=== PATIENT | female | born 1985 | race African-American/Black ===

== ENCOUNTER 2018-03-29 06:43 | Day surgery (SDC) | payer MEDICAID ==
[2018-03-27 12:15] LABS: HEMATOCRIT 39.5 % (36.0-48.0); MCH 34.7 pg (26.0-34.0); MCHC 35.4 g/dL (31.0-37.0); MCV 97.8 fL (80.0-100.0); MEAN PLATELET VOLUME 9.9 fL (7.4-10.4); PLATELET COUNT 184 10x3/uL (130-400); RBC 4.04 10x6/uL (4.00-5.40); WBC 5.3 10x3/uL (4.8-10.8)
[2018-03-27 12:56] LABS: LYMPHOCYTES 38 % (15-50); MONOCYTES 7 % (2-11); NEUTROPHILS 38 % (40-80); PLATELET ESTIMATE NORMAL
[~2018-03-29] VITALS: Ht 167.6 cm; Wt 75.3 kg
[2018-03-29 06:10] VITALS: BP 128/83; Ht 167.6 cm; Wt 75.3 kg
[2018-03-29 06:30] LABS: HCG URINE NEGATIVE (NEGATIVE)
--- NOTE | 2018-03-29 08:15 | NUR ---
RECE'D FROM SURGERY. BYPASSED RR. DROWSY BUT RESPONDS TO VERBAL STIMULI. COLA AND PUDDING BROUGHT TO PT. PT REFUSED OATMEAL. IS WANTING A HAMBURGER. EXPLAINED TO PT HAS TO HAVE FL LIQUID WHEN FIRST BACK FROM SURGERY. FAMILY AT BEDSIDE.
--- NOTE | 2018-03-29 09:00 | NUR ---
VS RECHECKED. PT UNCHANGED. MESH PANTIES AND KRISTI PAD GIVEN TO PT. FAMILY AT BEDSIDE.
--- NOTE | 2018-03-29 09:12 | NUR ---
DR RICK HERE TO TALK WITH PATIENT.
--- NOTE | 2018-03-29 09:30 | NUR ---
IV DC'D WITH CATHETER INTACT. WRITTEN AND VERBAL DC INST. GIVEN TO PT ALONG WITH RX. VERBALIZED UNDERSTANDING. GETTING DRESSED FOR DC.
--- NOTE | 2018-03-29 09:40 | NUR ---
DC'D HOME WITH FAMILY VIA PRIVATE VEHICLE. AMBULATORY TO VEHICLE. DID NOT WANT WC RELATING SHE CAN WALK. RELATED WE WOULD MAKE HER FEEL LIKE AN INVALID. STABLE AT TIME OF DC.
== END 2018-03-29 09:40 | disposition home or self-care (01) ==
LOC: D.OPS 06:43 → D.PAN 07:30 → D.OPS 09:40
PROVIDERS: Obstetrics & Gynecology
DX: N87.0 Mild cervical dysplasia (principal); N72 Inflammatory disease of cervix uteri; R87.810 Cervical high risk human papillomavirus (HPV) DNA test positive; Z01.812 Encounter for preprocedural laboratory examination

== ENCOUNTER 2018-10-23 04:12 | Emergency (ER) | payer MEDICAID ==
[~2018-10-23] VITALS: Ht 167.6 cm; Wt 76.8 kg
[2018-10-23 04:18] VITALS: Ht 167.6 cm; Wt 76.8 kg
[2018-10-23 05:10] LABS: HCG URINE NEGATIVE (NEGATIVE)
[2018-10-23 05:13] LABS: APPEARANCE CLOUDY (CLEAR); BILIRUBIN NEGATIVE (NEGATIVE); COLOR YELLOW (YELLOW); GLUCOSE NEGATIVE (NEGATIVE); KETONE NEGATIVE (NEGATIVE); NITRITE NEGATIVE (NEGATIVE); PROTEIN TRACE mg/dL (NEGATIVE); UROBILINOGEN NORMAL (NORMAL)
[2018-10-23 05:15] LABS: BACTERIA MANY /hpf (NONE SEEN); EPITHELIAL CELLS 0-5 /hpf (0-5); RED CELLS - URINE 0-5 /hpf (0-5); WHITE CELLS - URINE 0-5 /hpf (0-5)
[2018-10-23] MEDS ORDERED: HYDROCODON-ACE1 EAC7 PO (06:40)
[2018-10-23 07:07] VITALS: BP 112/74
== END 2018-10-23 07:05 | disposition home or self-care (01) ==
LOC: D.ER 04:12
PROVIDERS: Family Medicine
DX: S00.83XA Contusion of other part of head, initial encounter (principal); Y04.2XXA Assault by strike against or bumped into by another person, initial encounter; Y93.89 Activity, other specified; Y92.89 Other specified places as the place of occurrence of the external cause; S50.311A Abrasion of right elbow, initial encounter; S09.90XA Unspecified injury of head, initial encounter

== ENCOUNTER 2018-10-28 14:13 | Emergency (ER) | payer MEDICAID ==
[~2018-10-28] VITALS: Ht 167.6 cm; Wt 72.3 kg
[~2018-10-28 14:13] MED LIST: HYDROCODON-ACE1 EAC7 PO
[2018-10-28 14:18] VITALS: Ht 167.6 cm; Wt 72.3 kg
[2018-10-28] MEDS ORDERED: ELAVIL25 MG PO (15:21)
[2018-10-28 15:57] VITALS: BP 124/82
== END 2018-10-28 15:58 | disposition home or self-care (01) ==
LOC: D.ER 14:13
DX: G44.309 Post-traumatic headache, unspecified, not intractable (principal)

== ENCOUNTER 2020-07-17 10:00 | Emergency (ER) | payer MEDICAID ==
[~2020-07-17] VITALS: Ht 167.6 cm; Wt 76.8 kg
[~2020-07-17 10:00] MED LIST changes: +ELAVIL25 MG PO
[2020-07-17 10:05] VITALS: BP 114/69; Ht 167.6 cm; Wt 76.8 kg
[2020-07-17 10:36] LABS: HCG URINE POSITIVE (NEGATIVE)
[2020-07-17 10:37] LABS: BILIRUBIN NEGATIVE (NEGATIVE); KETONE NEGATIVE (NEGATIVE); NITRITE NEGATIVE (NEGATIVE); UROBILINOGEN NORMAL mg/dL (< 2)
[2020-07-17 10:38] LABS: SQUAMOUS EPITHELIAL 0-5 HPF (0-4); WHITE CELLS - URINE 0-5 HPF (0-4)
[2020-07-17 10:39] LABS: BACTERIA MODERATE HPF (NONE SEEN)
[2020-07-17 11:10] LABS: BASOPHILS 0.1 % (0-2); EOSINOPHILS 0.2 % (0-7); HEMATOCRIT 32.7 % (36.0-48.0); HEMOGLOBIN 11.5 g/dL (12-16); IMMATURE GRANULOCYTES 0.4 % (0-5); LYMPHOCYTE ABS# 2.49 10x3/uL (1.18-3.74); LYMPHOCYTES 25.1 % (15-50); MCH 35.2 pg (26.0-34.0); MCHC 35.2 g/dL (31.0-37.0); MEAN PLATELET VOLUME 9.7 fL (7.4-10.4); MONOCYTES 6.5 % (2-11); NEUTROPHIL ABS# 6.72 10x3/uL (1.56-6.13); NEUTROPHILS 67.7 % (40-80); PLATELET COUNT 206 10x3/uL (130-400); RBC 3.27 10x6/uL (4.00-5.40); RDW 12.9 % (11.5-14.5); WBC 9.9 10x3/uL (4.8-10.8)
[2020-07-17 11:22] LABS: CALC OSMOLALITY 272 mosm/kg (275-300); CALCIUM 8.3 mg/dL (8.5-10.1); CHLORIDE - SERUM 104 mmol/L (98-107); CREATININE - SERUM 0.7 mg/dL (0.6-1.3); GLUCOSE 74 mg/dL (74-106); POTASSIUM - SERUM 3.3 mmol/L (3.5-5.1); SODIUM 138 mmol/L (136-145); UREA NITROGEN 7 mg/dL (7-18); eGFR NON AFRICAN AMERICAN > 90 mL/min (90-120)
[2020-07-17 11:28] LABS: ALBUMIN 2.8 g/dL (3.4-5.0); ALKALINE PHOSPHATASE 50 U/L (30-120); ALT (SGPT) 22 U/L (10-68); BILIRUBIN - TOTAL 0.23 mg/dL (0.2-1.3); PROTEIN - SERUM 6.1 g/dL (6.4-8.2)
== END 2020-07-17 12:56 | disposition home or self-care (01) ==
LOC: D.ER 10:00
PROVIDERS: Emergency Medicine
DX: O26.891 Other specified pregnancy related conditions, first trimester (principal); Z3A.13 13 weeks gestation of pregnancy; R10.2 Pelvic and perineal pain; M54.5 Low back pain